=== PATIENT | male | born 1990 | race Caucasian/White ===

== ENCOUNTER 2016-06-14 17:09 | Emergency (ER) | payer OTHER ==
[~2016-06-14] VITALS: Ht 185.4 cm; Wt 75.0 kg
[2016-06-14 17:13] VITALS: BP 106/60; PULSE 61; RESP 20; O2SAT 99
--- NOTE | 2016-06-14 18:01 | ED.REPORT ---
HPI-Extremity Problem Lower Date of Service June 14, 2016 ED Provider: Anuja Nixon History of Present Illness: cut right inner leg with razor blade at work today at 4 pm. Does hilda, was cutting a small piece of material. unknown tdap. priamry care is no one. 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 Ambulatory Status Independent Review of Systems Basic Review of Systems Eyes: Vision NL, No discharge : No dysuria, No frequency Psychiatric: Normal thought content Physical Exam Initial Vital Signs Vital Signs (First) Date Time Temp Pulse Resp B/P Pulse Ox O2 Delivery O2 Flow Rate FiO2 06/14/16 17:13 36.2 61 20 106/60 99 Room Air Initial VS: Reviewed, Vital signs normal General/Constitutional: Well-developed, Well-nourished Head / Eyes: Atraumatic, Normocephalic, PERRL ENT: Mucous membranes moist, Conjunctiva normal, No scleral icterus Neck: Supple, Non-tender, Full range of motion Respiratory: Breath sounds normal, Clear to auscultation, No respiratory distress Cardiovascular: Regular rate & rhythm, Heart sounds normal, Intact distal pulses Abdomen / GI: Soft, Non-tender, No guarding, No rebound, No distention Back: No CVA tenderness Lymphatic: No lymphadenopathy Upper Extremities: Vascular intact, Neuro intact, No swelling, No tenderness Skin: Warm, Dry, No cyanosis Neurologic: Alert, Oriented, Nonfocal Psychiatric: Mood/affect normal, Behavior normal, Normal thought content 5 cm laceration on right inner leg. laceration id full thicknes but minimal depth. No extension into muscle General/Constitutional: Awake, Alert, Well appearing Respiratory / Chest: Atraumatic, Breath sounds NL, Breath sounds = bilat, No respiratory distress Cardiovascular: Heart rate NL, Regular rhythm, Heart sounds NL, No gallop Procedures Laceration Management Time: 18:05 Procedure Performed by: Allied health pract Consent / Setup / Site Prep: Informed consent provided, Consent from patient , Hand hygiene observed, Stand sterile technique Location of Wound: right inner thigh Wound Length: 5 cm Local Anesthesia: Lidocaine 1%, 5cc, 27g needle Digital Block: No Wound Preparation: Normal saline Repair Skin: ___ O (4), Nylon # Sutures - Skin: 7 Closure Layers: 1 Suture Technique: Simple Post-Procedure / Complications: Antibiotic oint applied, Dressing applied, No complications, Condition improved, Tolerated procedure well, Patient stable Re-Eval/Medical Decision Med Decision/Clinical Course 26 year old male presents for repair of leg laceration which occured while at work earlier. patient denies pain. sensation is intact distally. wound is repaired. no sign of compartment syndrome Discharge & Departure Impression: Primary Impression: Laceration Disposition: Home Patient Instructions: Laceration (GEN) Additional Instructions: You are being updated on your tdap today. You have 7 sutures in your wound. Keep dry for 24 hours. It is OK to get wet after that. Sutures out in 14 to 21 days here. Use bacitracin and a bandaid daily to the site. You are cleared to return to work tomorrow. Can use ibuprofen 800 mg if needed for any discomfort. Establish in primary care with the residency clinic. Referrals: [facility] EDSupervising Provider for APC: Ugo Majano DO copies to: [facility] Anuja Nixon June 14, 2016 18:01
[2016-06-14] MEDS ORDERED: TdaP Vaccine 0.5 mL Inj IM ONE (18:10)
== END 2016-06-14 18:47 | disposition home or self-care (01) ==
LOC: SED 17:09
DX: S71.111A Laceration without foreign body, right thigh, initial encounter (principal); W27.8XXA Contact with other nonpowered hand tool, initial encounter; Y93.89 Activity, other specified; Y99.0 Civilian activity done for income or pay; Y92.59 Other trade areas as the place of occurrence of the external cause; F12.10 Cannabis abuse, uncomplicated; Z23 Encounter for immunization